=== PATIENT | female | born 1960 | race Caucasian/White ===

== ENCOUNTER 2024-03-09 10:34 | Emergency (ER) | payer OTHER, SELFPAY ==
[2022-09-12 20:24] VITALS: BMI 27.4
[2024-03-09] VITALS (9 sets, daily range): BP systolic 94–120; BP diastolic 56–94; PULSE 81–100; RESP 14–18; TEMP 36.7; O2SAT 97–99; BMI 26.5
--- NOTE | 2024-03-09 10:36 | DI.CT.S_ITS ---
PROCEDURE: CT HEAD/BRAIN WO CON INDICATIONS: confusion TECHNIQUE: Noncontrast 4.5 mm thick angled axial sections acquired from the foramen magnum to the vertex, with coronal and sagittal reformats. For radiation dose reduction, the following was used: automated exposure control, adjustment of mA and/or kV according to patient size. COMPARISON: [facility], CT, CT STROKE, 09/12/2022, 15:48. MR, MR HEAD/BRAIN WO CON, 09/13/2022, 8:06. CT, CT ANGIO HEAD AND NECK, 09/12/2022, 15:48. FINDINGS: Image quality: Diagnostic. CSF spaces: Basal cisterns are patent. No extra-axial fluid collections. The ventricles are symmetric in size and shape. Brain: No intracranial bleeds or masses. There is cerebral volume loss for age, with resultant ventricular and sulcal prominence. There are periventricular and deep white matter chronic small vessel ischemic changes. There is intracranial internal carotid artery atherosclerosis. Low-attenuation is present within the right parietal occipital lobe consistent with old infarction. Similar smaller focus is present in the left posterior frontal parietal lobe, likely also financial services representative of remote infarction. Skull and face: Calvarium and visualized facial bones appear intact, without suspicious lesions. Sinuses: Visualized sinuses and mastoids are clear. IMPRESSION: 1. No acute intracranial process. 2. Minimal atrophy and chronic microvascular ischemic changes. Dictated by: Yuli Cedillo M.D. on 03/09/2024 at 11:29 Approved by: Yuli Cedillo M.D. on 03/09/2024 at 11:30
--- NOTE | 2024-03-09 10:55 | ED.GENADULT ---
HPI - General Adult <Royal TelloDO victoriano - Last Filed: 03/12/24 17:53> General Chief complaint: Altered Mental Status Stated complaint: CANCER PT SAYS SOMETHING IS WRONG Time Seen by Provider: 03/09/24 10:36 Source: patient Mode of arrival: Ambulatory History of Present Illness HPI narrative: Patient is a 63-year-old female. Has a history of breast cancer. Is currently undergoing treatment for this. Sees Oncology at [facility] and [facility]. She was also on anticoagulation. She was seen here in the emergency department yesterday for vomiting. Had a relatively unremarkable workup except that her potassium was somewhat low. After treatment she was discharged home. She returns to the emergency department today. She does seem somewhat more confused today. She has having a slight headache today which was not present yesterday. She also is describing issues with her muscle specifically with her left leg. It is difficult for her to specifically expressed this. States she has no longer vomiting. No chest pain. No shortness of breath. No abdominal pain. No change in bowel habits. No balance issues. Related Data Home Medications Medication Instructions Recorded Confirmed abemaciclib 150 mg tablet 150 mg PO BID 09/08/22 03/12/24 (Verzenio) letrozole 2.5 mg tablet 2.5 mg PO DAILY 09/08/22 03/12/24 rosuvastatin 20 mg tablet 20 mg PO QPM 09/08/22 03/12/24 metoprolol succinate 50 mg 12.5 mg PO DAILY 03/12/24 03/12/24 tablet,extended release 24 hr (Toprol XL) Allergies Allergy/AdvReac Type Severity Reaction Status Date / Time No Known Drug Allergies Allergy Verified 03/09/24 15:19 Review of Systems <Royal Steele DO - Last Filed: 03/12/24 17:53> Review of Systems Narrative: See HPI Patient History <Royal Steele DO - Last Filed: 03/12/24 17:53> Medical History Afib Chronic anxiety Compression fracture of fourth cervical vertebra Metastatic cancer to spine C. difficile colitis Hyperlipidemia Breast cancer Surgical History History of ankle surgery History of Family History Father CVA (cerebral vascular accident) Afib Mother Bowel obstruction Afib Social History household members: none Smoking Status: Never smoker alcohol intake: former Smoking Status: Never smoker alcohol intake frequency: holidays/special occasions only Substance Use Type: does not use Exam <Royal SteeleDO - Last Filed: 03/12/24 17:53> Initial Vital Signs Initial Vital Signs: Vital Signs Blood Pressure 115/83 03/09/24 10:40 HENMT Head: normal to inspection and normocephalic Chest Chest: normal inspection of the chest Resp Effort & Inspection: normal respiratory effort Cardio Rate: regular rate Skin General: no rashes or lesions noted Neuro General: patient alert, patient awake and moves all extremities Other: She was alert to person and place. It is somewhat difficult for her to describe the symptoms that actually brought her here today. She knows what year it is. She knows her date. Moves all 4 extremities equally. Does not slur words. Gait is unchanged from baseline per her report. Extrem Other: No gross deformities <Lisa Bejarano MD - Last Filed: 03/10/24 03:32> Initial Vital Signs Initial Vital Signs: Vital Signs Blood Pressure 115/83 03/09/24 10:40 Course <Royal ElishaDO victoriano - Last Filed: 03/12/24 17:53> Orders Ordered: ED Orders 03/09/24 11:40 Ammonia (NH3) Stat 03/09/24 12:04 Complement C3 Stat 03/09/24 12:05 CT abdomen pelvis w con Stat MR head/brain wo/w con Stat Vital Signs Vital signs: Vital Signs - 8 hr 03/09/24 20:52 Pulse Rate 95 H Respiratory Rate 14 Blood Pressure 120/94 H Pulse Oximetry 98 Oxygen Delivery Method Room Air <Lisa Bejarano MD - Last Filed: 03/10/24 03:32> Orders Ordered: ED Orders 03/09/24 11:40 Ammonia (NH3) Stat 03/09/24 12:04 Complement C3 Stat 03/09/24 12:05 CT abdomen pelvis w con Stat MR head/brain wo/w con Stat Vital Signs Vital signs: Vital Signs - 8 hr 03/09/24 20:52 Pulse Rate 95 H Respiratory Rate 14 Blood Pressure 120/94 H Pulse Oximetry 98 Oxygen Delivery Method Room Air Medical Decision Making <Royal Steele, DO - Last Filed: 03/12/24 17:53> Lab Data Lab results reviewed: Yes I reviewed the patient's lab results. 03/09/24 11:00 03/09/24 11:00 Labs: Lab Results 03/09/24 03/09/24 03/09/24 Range/Units 11:00 11:40 12:04 WBC 4.1 L (4.5-11.0) X10^3/uL RBC 2.39 L (4.0-5.2) X10^6/uL Hgb 9.5 L (12.0-16.0) g/dL Hct 27.2 L (36-46) % MCV 113.6 H (80-100) fL MCH 39.7 H (26-34) PG MCHC 35.0 (30-36) % RDW 16.3 H (11.6-14.8) % Plt Count 118 L (150-400) X10^3/uL Neut % (Auto) 53.9 (50-75) % Lymph % (Auto) 37.1 (25-40) % Braxton % (Auto) 7.3 (3-14) % Eos % (Auto) 1.0 L (2-4) % Baso % (Auto) 0.7 (0-2) % Neut # (Auto) 2200 (1356-5935) /uL Lymph # (Auto) 1500 (3811-9077) /uL Braxton # (Auto) 300 (0-900) /uL Eos # (Auto) 0 (0-450) /uL Baso # (Auto) 0 (0-100) /uL RBC Morphology Not Reportable Rouleaux 1+ H Percent Retic 6.4 H (1.1-2.6) % PT 13.4 H (9.4-12.5) SECONDS INR 1.2 (0.9-1.3) APTT 29 (25.1-36.5) SECONDS Sodium 137 (137-145) mmol/L Potassium 3.7 (3.4-5.1) mmol/L Chloride 108 H (98-107) mmol/L Carbon Dioxide 24 (22-32) mmol/L BUN 22 H (7-17) mg/dL Creatinine 1.18 H (0.52-1.04) mg/dL Estimated GFR 52 L (>60) mL/min BUN/Creatinine Ratio 18.6 (6-22) Glucose 123 H (80-110) mg/dL Calcium 8.7 (8.4-10.2) mg/dL Total Bilirubin 3.1 H (0.2-1.3) mg/dL AST 63 H (14-36) IU/L ALT 71 H (<35) IU/L Alkaline Phosphatase 108 (38-126) U/L Ammonia < 9 L (9-30) umol/L Lactate Dehydrogenase 597 H (120-246) U/L Total Protein 6.6 (6.3-8.2) g/dL Albumin 3.7 (3.5-5.0) g/dL Globulin 2.9 (1.7-4.1) g/dL Albumin/Globulin Ratio 1.3 (1.0-2.8) Lipase 118 (23-300) U/L Complement C3 145 (82-167) mg/dL Imaging Data CT scan - abdomen/pelvis: Radiologist's Impression: PROCEDURE: CT HEAD/BRAIN WO CON INDICATIONS: confusion TECHNIQUE: Noncontrast 4.5 mm thick angled axial sections acquired from the foramen magnum to the vertex, with coronal and sagittal reformats. For radiation dose reduction, the following was used: automated exposure control, adjustment of mA and/or kV according to patient size. COMPARISON: [facility], CT, CT STROKE, 09/12/2022, 15:48. MR, MR HEAD/BRAIN WO CON, 09/13/2022, 8:06. CT, CT ANGIO HEAD AND NECK, 09/12/2022, 15:48. FINDINGS: Image quality: Diagnostic. CSF spaces: Basal cisterns are patent. No extra-axial fluid collections. The ventricles are symmetric in size and shape. Brain: No intracranial bleeds or masses. There is cerebral volume loss for age, with resultant ventricular and sulcal prominence. There are periventricular and deep white matter chronic small vessel ischemic changes. There is intracranial internal carotid artery atherosclerosis. Low-attenuation is present within the right parietal occipital lobe consistent with old infarction. Similar smaller focus is present in the left posterior frontal parietal lobe, likely also mechanical service representative of remote infarction. Skull and face: Calvarium and visualized facial bones appear intact, without suspicious lesions. Sinuses: Visualized sinuses and mastoids are clear. IMPRESSION: 1. No acute intracranial process. 2. Minimal atrophy and chronic microvascular ischemic changes. CT scan - head: Radiologist's Impression: PROCEDURE: CT ABDOMEN PELVIS W CON INDICATIONS: History of hemolytic anemia, elevated bilirubin, TECHNIQUE: After the administration of intravenous contrast, axial sections acquired from the lung bases to the pubic symphysis. Coronal and sagittal reformats were performed. For radiation dose reduction, the following was used: automated exposure control, adjustment of mA and/or kV according to patient size. COMPARISON: [facility], CT, CT CHEST ABDOMEN PELVIS WITH CONTRAST, 07/18/2022, 7:07. FINDINGS: Image quality: Diagnostic. Lower Chest: No significant findings. ABDOMEN: Liver: No solid mass. Hepatic steatosis. Gallbladder: No radiopaque gallstones or wall thickening. Biliary ducts: Minimal appearance of intrahepatic biliary dilation. Pancreas: No ductal dilation. Spleen: Size is within normal limits. Adrenal Glands: No adrenal nodules. Kidneys and Ureters: No hydronephrosis. No solid mass. No complex renal cystic lesion which requires follow up. Stomach and Bowel: Mild appearance of scattered fluid-filled small bowel loops in a nonspecific pattern. Peritoneum: No abnormal intraperitoneal fluid. No free air. Ventral Wall: No significant ventral hernia. Abdominal Nodes: No retroperitoneal or mesenteric adenopathy by size criteria. Vessels: Aorta and inferior vena cava are normal in size. PELVIS: Pelvic Organs: Unremarkable. Bladder: No bladder wall thickening, accounting for underdistention. Pelvic Nodes: No enlarged lymph nodes. Miscellaneous: No inguinal hernias are seen. Bones: No aggressive osseous abnormality. IMPRESSION: Minimal appearance of intrahepatic biliary dilation. No distinct source of obstruction is identified. Pancreas is unremarkable MDM Narrative Medical decision making narrative: Patient has known metastatic breast cancer. Is alert and oriented upon arrival but is somewhat awkward in her interactions. She does seem to repeat herself quite a bit. She has obviously not sharp with answering questions. I did discuss the case with her oncologist who recommended a CT scan of her head. This showed no acute pathology. He recommended an MRI. She was also had issues with hemolytic anemia. You recommended a reticulocyte count and also an LDH. We had quite a bit of difficulty obtaining the MRI. Since her last MRI here she has had a Watchman placed for atrial fibrillation. It took quite a bit of time in order to determine whether or not the Watchman is MR compatible. It does turnaround planner that she has not MR compatible watchman. The plan will be to obtain an MRI and then disposition accordingly. Care turned over to Dr. Bejarano to follow-up on MRI and disposition. <Lisa Bejarano MD - Last Filed: 03/10/24 03:32> Lab Data Labs: Lab Results 03/09/24 03/09/24 03/09/24 Range/Units 11:00 11:40 12:04 WBC 4.1 L (4.5-11.0) X10^3/uL RBC 2.39 L (4.0-5.2) X10^6/uL Hgb 9.5 L (12.0-16.0) g/dL Hct 27.2 L (36-46) % MCV 113.6 H (80-100) fL MCH 39.7 H (26-34) PG MCHC 35.0 (30-36) % RDW 16.3 H (11.6-14.8) % Plt Count 118 L (150-400) X10^3/uL Neut % (Auto) 53.9 (50-75) % Lymph % (Auto) 37.1 (25-40) % Braxton % (Auto) 7.3 (3-14) % Eos % (Auto) 1.0 L (2-4) % Baso % (Auto) 0.7 (0-2) % Neut # (Auto) 2200 (3897-0585) /uL Lymph # (Auto) 1500 (6390-9823) /uL Braxton # (Auto) 300 (0-900) /uL Eos # (Auto) 0 (0-450) /uL Baso # (Auto) 0 (0-100) /uL RBC Morphology Not Reportable Rouleaux 1+ H Percent Retic 6.4 H (1.1-2.6) % PT 13.4 H (9.4-12.5) SECONDS INR 1.2 (0.9-1.3) APTT 29 (25.1-36.5) SECONDS Sodium 137 (137-145) mmol/L Potassium 3.7 (3.4-5.1) mmol/L Chloride 108 H (98-107) mmol/L Carbon Dioxide 24 (22-32) mmol/L BUN 22 H (7-17) mg/dL Creatinine 1.18 H (0.52-1.04) mg/dL Estimated GFR 52 L (>60) mL/min BUN/Creatinine Ratio 18.6 (6-22) Glucose 123 H (80-110) mg/dL Calcium 8.7 (8.4-10.2) mg/dL Total Bilirubin 3.1 H (0.2-1.3) mg/dL AST 63 H (14-36) IU/L ALT 71 H (<35) IU/L Alkaline Phosphatase 108 (38-126) U/L Ammonia < 9 L (9-30) umol/L Lactate Dehydrogenase 597 H (120-246) U/L Total Protein 6.6 (6.3-8.2) g/dL Albumin 3.7 (3.5-5.0) g/dL Globulin 2.9 (1.7-4.1) g/dL Albumin/Globulin Ratio 1.3 (1.0-2.8) Lipase 118 (23-300) U/L Complement C3 145 (82-167) mg/dL Imaging Data CT scan - head: My Impression: PROCEDURE: MR HEAD/BRAIN WO/W CON INDICATIONS: Confusion, history of metastatic breast cancer TECHNIQUE: Noncontrast axial T1 spin echo, axial T2 fast spin echo, sagittal and axial FLAIR, coronal T2 fast spin echo, axial gradient echo, axial diffusion and ADC through the brain. After the administration of contrast, axial and coronal and sagittal T1 spin echo with fat saturation through the brain. COMPARISON: [facility], CT, CT HEAD/BRAIN WO CON, 03/09/2024, 11:03. [facility], MR, MR HEAD/BRAIN WO CON, 09/13/2022, 8:06. Outside Film, MR, MR BRAIN WITH/WITHOUT CONTRAST, 07/29/2022, 8:15. FINDINGS: Image quality: Excellent. CSF spaces: Basal cisterns are patent. No extra-axial fluid collections. Ventricles are normal in size and shape. Brain: No midline shift. No intracranial bleeds or masses. No abnormal intracranial enhancement. There is cerebral volume loss for age. There is periventricular white matter chronic small vessel ischemic change. The brainstem appears normal. Diffusion-weighted images demonstrate no acute infarct. No chronic ischemic insults. Normal intravascular flow voids are present. Encephalomalacia and gliosis consistent with prior infarction in the left parietal occipital lobe is present. Skull and face: Calvarial marrow is normal in signal. Orbits appear normal. Sinuses: Sinuses and mastoids appear clear. IMPRESSION: 1. No acute intracranial process. 2. Mild atrophy and chronic microvascular ischemic changes. Dictated by: Yuli Cedillo M.D. on 03/09/2024 at 18:55 Approved by: Yuli Cedillo M.D. on 03/09/2024 at 18:57 Radiologist's Impression: PROCEDURE: CT ABDOMEN PELVIS W CON INDICATIONS: History of hemolytic anemia, elevated bilirubin, TECHNIQUE: After the administration of intravenous contrast, axial sections acquired from the lung bases to the pubic symphysis. Coronal and sagittal reformats were performed. For radiation dose reduction, the following was used: automated exposure control, adjustment of mA and/or kV according to patient size. COMPARISON: Outside Film, CT, CT CHEST ABDOMEN PELVIS WITH CONTRAST, 07/18/2022, 7:07. FINDINGS: Image quality: Diagnostic. Lower Chest: No significant findings. ABDOMEN: Liver: No solid mass. Hepatic steatosis. Gallbladder: No radiopaque gallstones or wall thickening. Biliary ducts: Minimal appearance of intrahepatic biliary dilation. Pancreas: No ductal dilation. Spleen: Size is within normal limits. Adrenal Glands: No adrenal nodules. Kidneys and Ureters: No hydronephrosis. No solid mass. No complex renal cystic lesion which requires follow up. Stomach and Bowel: Mild appearance of scattered fluid-filled small bowel loops in a nonspecific pattern. Peritoneum: No abnormal intraperitoneal fluid. No free air. Ventral Wall: No significant ventral hernia. Abdominal Nodes: No retroperitoneal or mesenteric adenopathy by size criteria. Vessels: Aorta and inferior vena cava are normal in size. PELVIS: Pelvic Organs: Unremarkable. Bladder: No bladder wall thickening, accounting for underdistention. Pelvic Nodes: No enlarged lymph nodes. Miscellaneous: No inguinal hernias are seen. Bones: No aggressive osseous abnormality. IMPRESSION: Minimal appearance of intrahepatic biliary dilation. No distinct source of obstruction is identified. Pancreas is unremarkable MDM Narrative Medical decision making narrative: Patient has known metastatic breast cancer. Is alert and oriented upon arrival but is somewhat awkward in her interactions. She does seem to repeat herself quite a bit. She has obviously not sharp with answering questions. I did discuss the case with her oncologist who recommended a CT scan of her head. This showed no acute pathology. He recommended an MRI. She was also had issues with hemolytic anemia. You recommended a reticulocyte count and also an LDH. We had quite a bit of difficulty obtaining the MRI. Since her last MRI here she has had a Watchman placed for atrial fibrillation. It took quite a bit of time in order to determine whether or not the Watchman is MR compatible. It does turnaround planner that she has not MR compatible watchman. The plan will be to obtain an MRI and then disposition accordingly. Care turned over to Dr. Bejarano to follow-up on MRI and disposition. Dr. Bejarano -MRI brain negative for acute findings. Discussed case with patient's oncologist Dr. Proctor via cell phone. All lab and imaging results including reticulocyte count and LDH discussed with oncologist. He states that at this time he does not see any indication for admission or transfer at this time, and will have his office reach out to the patient to bump up her follow up appointment in office. Discussed all lab and imaging findings with the patient at bedside. Recommended calling the oncologist office to ensure that a follow up appointment is obtained in a timely manner. Patient called someone to give her a ride home. Discharge Plan Departure Patient Disposition: Home Clinical Impression: Headache Instructions: DI for Headache Activity Restrictions/Additional Instructions: PLEASE CALL YOUR ONCOLOGIST TO HAVE A FOLLOW UP APPOINTMENT. Prescriptions: No Action letrozole 2.5 mg tablet 2.5 mg PO DAILY rosuvastatin 20 mg tablet 20 mg PO QPM Patient Comments: TAKE 1 TABLET BY MOUTH DAILY Verzenio 150 mg tablet 150 mg PO BID metoprolol succinate [Toprol XL] 50 mg tablet extended release 24 hr 12.5 mg PO DAILY Referrals: Miscellaneous,Doctor, MD [Primary Care Provider] - Stand Alone Forms: Patient Portal/API
[2024-03-09 11:15] LABS: Add Manual Diff / Slide Review NO; Basophils Absolute Auto 0 /uL (0-100); Basophils Percent Auto 0.7 % (0-2); Eosinophils Absolute Auto 0 /uL (0-450); Hematocrit 27.2 % (36-46); Hemoglobin 9.5 g/dL (12.0-16.0); Lymphocytes Absolute Auto 1500 /uL (1100-4500); Lymphocytes Percent Auto 37.1 % (25-40); Mean Corpuscular Hemoglobin 39.7 PG (26-34); Mean Corpuscular Volume 113.6 fL (80-100); Monocytes Absolute Auto 300 /uL (0-900); Monocytes Percent Auto 7.3 % (3-14); Neutrophils Absolute Auto 2200 /uL (1500-7000); Neutrophils Percent Auto 53.9 % (50-75); Platelet Count 118 X10^3/uL (150-400); Red Blood Cell Count 2.39 X10^6/uL (4.0-5.2); Red Cell Distribution Width 16.3 % (11.6-14.8); White Blood Cell Count 4.1 X10^3/uL (4.5-11.0)
[2024-03-09 11:16] LABS: INR 1.2 (0.9-1.3); Prothrombin Time 13.4 SECONDS (9.4-12.5)
[2024-03-09 11:18] LABS: PTT Partial Thromboplastin Tim 29 SECONDS (25.1-36.5)
[2024-03-09 11:20] LABS: Alanine Aminotransferase 71 IU/L (<35); Albumin 3.7 g/dL (3.5-5.0); Albumin Globulin Ratio 1.3 (1.0-2.8); Alkaline Phosphatase 108 U/L (38-126); Aspartate Aminotransferase 63 IU/L (14-36); BUN Creatinine Ratio 18.6 (6-22); Bilirubin Total 3.1 mg/dL (0.2-1.3); Blood Urea Nitrogen 22 mg/dL (7-17); Calcium 8.7 mg/dL (8.4-10.2); Carbon Dioxide 24 mmol/L (22-32); Chloride 108 mmol/L (98-107); Estimated Glomerular Filt Rate 52 mL/min (>60); Globulin 2.9 g/dL (1.7-4.1); Glucose 123 mg/dL (80-110); HEMOLYSIS < 15 (0-50); Lipase 118 U/L (23-300); Potassium 3.7 mmol/L (3.4-5.1); Sodium 137 mmol/L (137-145); Total Protein 6.6 g/dL (6.3-8.2)
[2024-03-09 11:28] LABS: Rouleaux 1+
--- NOTE | 2024-03-09 12:05 | DI.MRI.S_ITS ---
PROCEDURE: MR HEAD/BRAIN WO/W CON INDICATIONS: Confusion, history of metastatic breast cancer TECHNIQUE: Noncontrast axial T1 spin echo, axial T2 fast spin echo, sagittal and axial FLAIR, coronal T2 fast spin echo, axial gradient echo, axial diffusion and ADC through the brain. After the administration of contrast, axial and coronal and sagittal T1 spin echo with fat saturation through the brain. COMPARISON: [facility], CT, CT HEAD/BRAIN WO CON, 03/09/2024, 11:03. [facility], MR, MR HEAD/BRAIN WO CON, 09/13/2022, 8:06. Outside Film, MR, MR BRAIN WITH/WITHOUT CONTRAST, 07/29/2022, 8:15. FINDINGS: Image quality: Excellent. CSF spaces: Basal cisterns are patent. No extra-axial fluid collections. Ventricles are normal in size and shape. Brain: No midline shift. No intracranial bleeds or masses. No abnormal intracranial enhancement. There is cerebral volume loss for age. There is periventricular white matter chronic small vessel ischemic change. The brainstem appears normal. Diffusion-weighted images demonstrate no acute infarct. No chronic ischemic insults. Normal intravascular flow voids are present. Encephalomalacia and gliosis consistent with prior infarction in the left parietal occipital lobe is present. Skull and face: Calvarial marrow is normal in signal. Orbits appear normal. Sinuses: Sinuses and mastoids appear clear. IMPRESSION: 1. No acute intracranial process. 2. Mild atrophy and chronic microvascular ischemic changes. Dictated by: Yuli Cedillo M.D. on 03/09/2024 at 18:55 Approved by: Yuli Cedillo M.D. on 03/09/2024 at 18:57
--- NOTE | 2024-03-09 12:05 | DI.CT.S_ITS ---
PROCEDURE: CT ABDOMEN PELVIS W CON INDICATIONS: History of hemolytic anemia, elevated bilirubin, TECHNIQUE: After the administration of intravenous contrast, axial sections acquired from the lung bases to the pubic symphysis. Coronal and sagittal reformats were performed. For radiation dose reduction, the following was used: automated exposure control, adjustment of mA and/or kV according to patient size. COMPARISON: Outside Film, CT, CT CHEST ABDOMEN PELVIS WITH CONTRAST, 07/18/2022, 7:07. FINDINGS: Image quality: Diagnostic. Lower Chest: No significant findings. ABDOMEN: Liver: No solid mass. Hepatic steatosis. Gallbladder: No radiopaque gallstones or wall thickening. Biliary ducts: Minimal appearance of intrahepatic biliary dilation. Pancreas: No ductal dilation. Spleen: Size is within normal limits. Adrenal Glands: No adrenal nodules. Kidneys and Ureters: No hydronephrosis. No solid mass. No complex renal cystic lesion which requires follow up. Stomach and Bowel: Mild appearance of scattered fluid-filled small bowel loops in a nonspecific pattern. Peritoneum: No abnormal intraperitoneal fluid. No free air. Ventral Wall: No significant ventral hernia. Abdominal Nodes: No retroperitoneal or mesenteric adenopathy by size criteria. Vessels: Aorta and inferior vena cava are normal in size. PELVIS: Pelvic Organs: Unremarkable. Bladder: No bladder wall thickening, accounting for underdistention. Pelvic Nodes: No enlarged lymph nodes. Miscellaneous: No inguinal hernias are seen. Bones: No aggressive osseous abnormality. IMPRESSION: Minimal appearance of intrahepatic biliary dilation. No distinct source of obstruction is identified. Pancreas is unremarkable. Dictated by: Yuli Cedillo M.D. on 03/09/2024 at 13:12 Approved by: Yuli Cedillo M.D. on 03/09/2024 at 13:19
[2024-03-09 12:06] LABS: Ammonia (NH3) < 9 umol/L (9-30)
[2024-03-09 12:19] LABS: Lactate Dehydrogenase 597 U/L (120-246)
[2024-03-09 12:23] LABS: Reticulocyte Count, Percent 6.4 % (1.1-2.6)
[2024-03-10 03:10] LABS: Complement C3 145 mg/dL (82-167)
== END 2024-03-09 20:53 | disposition home or self-care (01) ==
PROVIDERS: Emergency Medicine; Emergency Provider Emergency Medicine
DX: R51.9 Headache, unspecified (principal); C50.919 Malignant neoplasm of unspecified site of unspecified female breast; C79.51 Secondary malignant neoplasm of bone
CPT/HCPCS: 36415; 70450; 70553; 74177; 80053; 82140; 83615; 83690; 85025; 85045; 85610; 85730; 86160; 99284; A9579; Q9967